=== PATIENT | female | born 1965 | race Two or more races ===

== ENCOUNTER 2021-03-13 13:46 | Emergency (ER) | payer OTHER ==
[2021-03-13 14:09] VITALS: BP 107/73; PULSE 66; TEMP 98.4; BMI 20.7
[2021-03-13] MEDS ORDERED: ACETAMINOPHEN 325 MG TABLET (FP) PO ONE (14:42)
[2021-03-13] MEDS ORDERED: ACETAMINOPHEN 500 MG TABLET (FP) ONE (14:45)
[2021-03-13] MEDS ORDERED: BACITRACIN 15 GM TUBE TOPICAL OINTMENT ONE (17:17)
== END 2021-03-13 17:28 | disposition home or self-care (01) ==
LOC: JER 13:46
PROC: 0JQ10ZZ Repair Face Subcutaneous Tissue and Fascia, Open Approach (ICD-10-PCS; principal; 2021-03-13)
DX: S02.2XXA Fracture of nasal bones, initial encounter for closed fracture (principal)
CPT/HCPCS: 70450-TC; 70486-TC; 73110-TC-LT-FY; 73130-TC-LT-FY; 99284-25